=== PATIENT | male | born 1960 | race Caucasian/White ===

== ENCOUNTER 2018-05-19 19:01 | Emergency (ER) | payer MEDICAID ==
[~2018-05-19] VITALS: Ht 190.5 cm; Wt 102.1 kg
--- NOTE | 2018-05-19 19:07 | NUR ---
Patient to ER bed 3 to gown for evaluation. Side rails up. Report given to Ant SAPP.
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
[2018-05-19 19:10] VITALS: BP_SYST 168
--- NOTE | 2018-05-19 19:10 | NUR ---
ER Dr. Bangura at bedside examining patient.
[2018-05-19] MEDS ORDERED: NACL 0.9% 1,000 ML IV ONE (19:15)
[2018-05-19] MEDS ORDERED: cefTRIAXone 1 GM IVPB PREMIX 50 ML IV ONE (19:15)
--- NOTE | 2018-05-19 19:24 | NUR ---
Patient to CT with psych tech and RN. Patient is in no signs of distress at this time.
[2018-05-19] MEDS ORDERED: DIPH-TET-PERTUS Vaccine 0.5 ML VIAL (ADACEL) I.M. ONE (19:30)
--- NOTE | 2018-05-19 19:35 | NUR ---
Patient returned to ER with no signs of distress.
[2018-05-19 19:39] LABS: BASOPHILS % (AUTO) 0.9 % (0.0-2.0); EOSINOPHILS # (AUTO) 0.1 K/uL (0.0-0.4); EOSINOPHILS % (AUTO) 1.7 % (0.0-4.0); HEMATOCRIT 48.7 % (36-54); HEMOGLOBIN 16.7 g/dL (14.0-18.0); LYMPHOCYTES # (AUTO) 1.3 K/uL (1.0-5.5); LYMPHOCYTES % (AUTO) 24.5 % (20.5-51.5); MEAN CORPUSCULAR HEMOGLOBIN 31 pg (27-31); MEAN CORPUSCULAR HGB CONC 34 % (32-36); MEAN CORPUSCULAR VOLUME 89 fL (79.0-98.0); MONOCYTES # (AUTO) 0.7 K/uL (0.0-1.0); MONOCYTES % (AUTO) 13.1 % (1.7-9.3); NEUTROPHILS # (AUTO) 3.2 K/uL (1.8-7.7); NEUTROPHILS % (AUTO) 59.8 % (40.0-70.0); PLATELET COUNT (AUTO) 216 K/uL (130-430); RED BLOOD CELL COUNT(AUTO) 5.46 MIL/uL (4.2-6.2); RED CELL DISTRIBUTION WIDTH 12.7 % (9.0-15.0); WHITE BLOOD COUNT (AUTO) 5.3 K/uL (4.8-10.8)
[2018-05-19 19:53] LABS: CALCIUM 9.5 mg/dL (8.4-11.0); CREATININE 1.13 mg/dL (0.55-1.30); POTASSIUM 3.8 mmol/L (3.5-5.1)
[2018-05-19 19:59] LABS: ALBUMIN 4.1 g/dL (3.4-4.8); TOTAL BILIRUBIN 0.7 mg/dL (0.0-1.0)
[2018-05-19] MEDS ORDERED: BACITRACIN 1 GM OINT TP ONE ×3 (20:17→20:45)
[2018-05-19 20:19] LABS: BILIRUBIN,URINE NEGATIVE (NEGATIVE); BLOOD, URINE NEGATIVE (NEGATIVE); CLARITY/URINE CLEAR (CLEAR); COLOR,URINE YELLOW (YELLOW); GLUCOSE,URINE NEGATIVE (NEGATIVE); KETONES,URINE NEGATIVE (NEGATIVE); LEUKOCYTE ESTERASE ,URINE NEGATIVE (NEGATIVE); NITRITE, URINE NEGATIVE (NEGATIVE); PH,URINE 5.5 (5.0-8.0); PROTEIN URINE NEGATIVE (NEGATIVE); UROBILINOGEN,URINE 0.2 (0.2-1.0)
--- NOTE | 2018-05-19 20:40 | NUR ---
No puncture wound noted to patient's head. Abrasion of approximately 3 cm noted to right head. Dressing of dry gauze and gauze wrap placed to patient's right head. Bacitracin placed over wound. No active bleeding noted. Patient tolerated treatment well.
[2018-05-19 20:42] VITALS: BP_SYST 137
--- NOTE | 2018-05-19 20:42 | NUR ---
Patient given written and verbal discharge instructions and verbalizes understanding. ER MD discussed with patient the results and treatment provided. Patient in stable condition. ID arm band removed. IV catheter removed intact and dressing applied, no active bleeding. Rx of amoxicillin given. Patient educated on pain management and to follow up with PMD. Pain Scale 0/10. Opportunity for questions provided and answered. Medication side effect fact sheet provided.
== END 2018-05-19 20:42 | disposition home or self-care (01) ==
LOC: SED 19:01
DX: S01.83XA Puncture wound without foreign body of other part of head, initial encounter (principal); V18.0XXA Pedal cycle driver injured in noncollision transport accident in nontraffic accident, initial encounter; X58.XXXA Exposure to other specified factors, initial encounter; Y93.89 Activity, other specified; Y92.410 Unspecified street and highway as the place of occurrence of the external cause; Y99.8 Other external cause status; R03.0 Elevated blood-pressure reading, without diagnosis of hypertension
CPT/HCPCS: 36415; 70450; 80053; 81003; 85025; 87040; 90471; 90715; 96361; 96365; 99285; J0696; J7030